=== PATIENT | female | born 1995 | race African-American/Black ===

== ENCOUNTER 2016-04-07 10:54 | Emergency (ER) | payer SELFPAY ==
[~2016-04-07] VITALS: Ht 175.3 cm; Wt 66.6 kg
[~2016-04-07 10:54] MED LIST: ALBU1.25 NEB; PRENCAP6 PO; PROM25SU8 PO
[2016-04-07 11:06] VITALS: BP 109/78; PULSE 72; RESP 16; TEMP 98.6; O2SAT 99
--- NOTE | 2016-04-07 11:14 | PD ---
HPI Chief Complaint: Cold / Flu Symptoms Time Seen by Provider: 11:12 Travel History International Travel<30 days: No Contact w/Intl Traveler<30days: No Traveled to known affect area: No History of Present Illness HPI 21-year-old Afro-[place] female with history of asthma presents the emergency Department with 5-6 day history of upper respiratory infection symptoms including fever, congestion, sore throat, increased cough and wheeze controlled with her albuterol nebulizer. She states the fever has improved but she continues to have head congestion, sore throat, postnasal drip, and cough. Patient denies ear pain, nausea, vomiting, or heartburn. Patient has been using her nebulizer at home with good results. She has no known drug allergies. PFSH Past Medical History Hx Anticoagulant Therapy: No Asthma: Yes Blood Disorders: No Cardiovascular Problems: No Chemotherapy: No Cerebrovascular Accident: No Diabetes: No Diminished Hearing: No Respiratory: Yes (asthma) Immunizations Current: Yes ?: Not LMP: no menses still breast feeding : 1 Past Surgical History Hysterectomy: No Joint Replacement: Yes (LEFT KNEE ARTHROSCOPY) Social History Alcohol Use: No Tobacco Use: No Substance Use: No Allergies-Medications (Allergen,Severity, Reaction): Coded Allergies: No Known Allergies (Verified , 04/07/16) Reported Meds & Prescriptions Reported Meds & Active Scripts Active Reported Albuterol Neb (Albuterol Sulfate) 1.25 Mg/3 Ml Neb 1.25 Mg NEB Q4HR NEB PRN Review of Systems Except as stated in HPI: all other systems reviewed are Neg General / Constitutional: Positive: Fever (last week but now gone.), No: Chills Eyes: No: Visual changes HENT: Positive: Headaches, Sore Throat, Rhinitis, Rhinorrhea, Congestion, No: Vertigo, Lightheadedness, Nosebleed, Neck Stiffness, Neck Pain, Masses, Ear Discharge, Earache Cardiovascular: No: Chest Pain or Discomfort Respiratory: Positive: Cough, Wheezing (mild controlled with albuterol.), No: Shortness of Breath Gastrointestinal: No: Nausea, Vomiting, Diarrhea, Abdominal Pain Genitourinary: No: Dysuria Musculoskeletal: No: Pain Skin: No Rash Neurologic: No: Weakness Psychiatric: No: Depression Endocrine: No: Polydipsia Hematologic/Lymphatic: No: Easy Bruising Physical Exam Narrative GENERAL: Patient appears in acute distress. SKIN: Warm and dry. Normal color. Normal turgor. HEAD: Atraumatic. Normocephalic. EYES: Pupils equal and round. No scleral icterus. No injection or drainage. ENT: No nasal bleeding or discharge. Mucous membranes pink and moist. TMs are somewhat dull bilaterally without injection. Pharynx shows injection and swollen tonsils bilaterally without exudate. There is cobblestoning present in the posterior pharynx. There is postnasal drip noted. NECK: Trachea midline. No JVD. Supple nontender without significant lymphadenopathy. CARDIOVASCULAR: Regular rate and rhythm. RESPIRATORY: No accessory muscle use. Clear to auscultation. Breath sounds equal bilaterally. MUSCULOSKELETAL: Extremities without clubbing, cyanosis, or edema. No obvious deformities. NEUROLOGICAL: Awake and alert. No obvious cranial nerve deficits. Motor grossly within normal limits. Five out of 5 muscle strength in the arms and legs. Normal speech. PSYCHIATRIC: Appropriate mood and affect; insight and judgment normal. Data Data Last Documented VS Vital Signs Date Time Temp Pulse Resp B/P Pulse Ox O2 Delivery O2 Flow Rate FiO2 04/07/16 11:10 14 99 Room Air 04/07/16 11:06 98.6 72 109/78 MDM Medical Decision Making Medical Screen Exam Complete: Yes Emergency Medical Condition: Yes Differential Diagnosis Upper respiratory infection. Sinusitis. Pharyngitis. Tonsillitis. Asthma with acute exacerbation. Narrative Course Patient is medically stable at time of exam. Patient given amoxicillin 875 twice a day 10 days. Patient given Flonase nasal spray 2 sprays each nostril daily. Patient given a refill of her albuterol nebulizer solution one every 4-6 hours when necessary. #120. Work note is given. Patient follow with her primary care physician or return to the ED with worsening symptoms as needed. Diagnosis Primary Impression: Sinusitis, acute Qualified Code: J01.90 - Acute sinusitis, recurrence not specified, unspecified location Additional Impression: Asthma exacerbation Patient Instructions: General Instructions, Sinusitis (ED) Departure Forms: Work Release Enter return to work date: Apr 08, 2016 Additional Instructions: Patient given amoxicillin 875 twice a day 10 days. Patient given Flonase nasal spray 2 sprays each nostril daily. Patient given a refill of her albuterol nebulizer solution one every 4-6 hours when necessary. #120. Work note is given. Patient follow with her primary care physician or return to the ED with worsening symptoms as needed. Med/Other Pt SpecificInfo: Prescription(s) given Scripts Fluticasone Nasal [place] (Flonase Allergy Relief Children Nasal [place])50 Mcg/Act Spray2 [place] EACH NARE DAILY #1 BOTTLE 50 mcg/spray Prov:Belem Chang MD 04/07/16 Amoxicillin 875 Mg [id number] Mg PO BID #20 TAB Prov:Belem Chang MD 04/07/16 Disposition: 01 DISCHARGE HOME Condition: Stable Daniel Mckeon Apr 07, 2016 11:14
[2016-04-07] MEDS ORDERED: ALBU1.25 NEB (11:17)
[2016-04-07] MEDS ORDERED: AMOX875T PO ×2 (11:19→11:25)
[2016-04-07] MEDS ORDERED: FLUT1SPR9 EACH NARE ×2 (11:19→11:25)
[2016-04-07] MEDS ORDERED: ALBU.5I NEB (11:25)
== END 2016-04-07 11:35 | disposition home or self-care (01) ==
LOC: PHEFT 10:54
DX: J01.90 Acute sinusitis, unspecified (principal); J45.901 Unspecified asthma with (acute) exacerbation
CPT/HCPCS: 99283

== ENCOUNTER 2016-09-05 07:23 | Emergency (ER) | payer SELFPAY ==
[~2016-09-05] VITALS: Ht 175.3 cm; Wt 63.9 kg
[~2016-09-05 07:23] MED LIST changes: +ALBU.5I NEB; +AMOX875T PO; +FLUT1SPR9 EACH NARE; -PRENCAP6 PO; -PROM25SU8 PO
[2016-09-05 07:29] VITALS: BP 127/67; PULSE 83; RESP 16; TEMP 97.9; O2SAT 100
--- NOTE | 2016-09-05 08:23 | PD ---
HPI Chief Complaint: Pain: Acute or Chronic Time Seen by Provider: 07:52 Travel History International Travel<30 days: No Contact w/Intl Traveler<30days: No Traveled to known affect area: No History of Present Illness HPI The patient was seen and examined in the presence of the nurse. This patient complains of discomfort in the left breast. Duration 2 days. She is breast- feeding for the last 11 months. She's had no problem with engorgement or getting the milk out. No fever. No drainage. PFSH Past Medical History Hx Anticoagulant Therapy: No Asthma: Yes Blood Disorders: No Cardiovascular Problems: No Chemotherapy: No Cerebrovascular Accident: No Diabetes: No Diminished Hearing: No Respiratory: Yes (asthma) Immunizations Current: Yes ?: Not : 1 Para: 1 Past Surgical History Hysterectomy: No Joint Replacement: Yes (LEFT KNEE ARTHROSCOPY) Social History Alcohol Use: No Tobacco Use: No Substance Use: No Allergies-Medications (Allergen,Severity, Reaction): Coded Allergies: No Known Allergies (Verified , 09/05/16) Reported Meds & Prescriptions Reported Meds & Active Scripts Active Reported Albuterol Neb (Albuterol Sulfate) 1.25 Mg/3 Ml Neb 1.25 Mg NEB Q4HR NEB PRN Review of Systems General / Constitutional: No: Fever HENT: No: Headaches Cardiovascular: No: Chest Pain or Discomfort Physical Exam Narrative SKIN: Focused skin assessment reveals no rash or ulcers. Skin is warm and dry. Palpation shows no induration or nodules. NECK: Symmetrical appearance, midline trachea. No mass or crepitus. Thyroid without enlargement, tenderness, or mass. Psych: Normal mood and affect. Normal insight and judgment. Left breast: Findings here are very subtle. No dominant mass. No mastitis. No drainage. There is very small and round 1 cm x 1 cm nodule that slightly tender at about the 2 o'clock position. Data Data Last Documented VS Vital Signs Date Time Temp Pulse Resp B/P Pulse Ox O2 Delivery O2 Flow Rate FiO2 09/05/16 07:29 97.9 83 16 127/67 100 MDM Medical Decision Making Medical Screen Exam Complete: Yes Emergency Medical Condition: Yes Medical Record Reviewed: Yes Differential Diagnosis Mastitis, engorgement, cyst Narrative Course I have reviewed the patient's electronic medical record. I recommended she follow up with her [facility] physician for repeat breast exam and discussion of what to do next with this. Nothing emergent to do at this time. Findings are very subtle. Diagnosis Primary Impression: Breast pain, left Additional Instructions: The patient was advised to follow up with their physician and return if they worsen. Med/Other Pt SpecificInfo: Other Disposition: 01 DISCHARGE HOME Condition: Stable Ken Gramajo MD Sep 05, 2016 08:23
== END 2016-09-05 08:35 | disposition home or self-care (01) ==
LOC: PHED 07:23
DX: N64.4 Mastodynia (principal); N63 Unspecified lump in breast; Z87.09 Personal history of other diseases of the respiratory system
CPT/HCPCS: 99283

== ENCOUNTER 2017-02-18 15:23 | Emergency (ER) | payer SELFPAY ==
[~2017-02-18 15:23] MED LIST changes: -ALBU.5I NEB; -AMOX875T PO; -FLUT1SPR9 EACH NARE
== END 2017-02-18 18:28 | disposition left against medical advice (07) ==
LOC: PHED 15:23
DX: R05 Cough (principal)
CPT/HCPCS: 99281